=== PATIENT | female | born 1990 | race Caucasian/White ===

== ENCOUNTER 2019-09-14 17:23 | Emergency (ER) | payer BC, SELFPAY ==
--- NOTE | ~2019-09-14 | US_ITS ---
EXAMINATION: US OB <= 14 weeks fetus EXAM DATE: 09/14/2019 17:56 INDICATION: Vaginal bleeding, . 1st trimester. TECHNIQUE: Pelvic obstetrical transabdominal sonogram was performed by a technologist. There are mu ltiple grayscale and Doppler images available for interpretation. There are no earlier studies of th is gestation for comparison. FINDINGS: Uterus measures 11.0 x 8.7 x 5.6 cm. There is intrauterine gestation sac. pole with heart rate confirmed at 169 beats per minute. The 1.6 cm crown-rump length corresponds to estimated gestational age by ultrasound of 8 weeks 0 days . Yolk sac is identified. There are 2 small regio ns of subchorionic hemorrhage identified, largest measuring 1.5 x 1.4 x 1.1 cm, the other measuring 6 x 7 x 3 mm. Left ovary morphologically normal, right not identified. IMPRESSION: Early live intrauterine gestation with 2 small subchorionic hemorrhages. Reviewed, dictated and finalized at location A. IMPRESSION: Early live intrauterine gestation with 2 small subchorionic hemorr hages.
[2019-09-14 17:39] VITALS: BP 110/62; PULSE 88; RESP 20; TEMP 36.8; O2SAT 98
--- NOTE | 2019-09-14 18:00 | ED.FEMALEGU ---
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 Patient reports LMP of 07/19/2019. She is a patient of Dr. Thompson. Has follow-up tomorrow but developed this discomfort today and he referred her to the ER. She is a G4, P1. No urinary symptoms. Pain is crampy and nonradiating. Related Data Allergies Allergy/AdvReac Type Severity Reaction Status Date / Time No Known Allergies Allergy Verified 06/01/17 15:39 Review of Systems Review of Systems: All systems reviewed & are unremarkable except as noted in HPI and below Gastrointestinal: Gastrointestinal: Reports abdominal pain, Denies nausea and Denies vomiting Genitourinary: Genitourinary: Denies abnormal vaginal bleeding, Denies nocturia, Denies dysuria and Denies vaginal discharge PMFSH Past Medical History Medical History (Updated 09/14/19 @ 19:21 by Robert Medina MD) Patient denies significant medical history Surgical History Surgical History (Updated 09/14/19 @ 18:07 by Robert Medina MD) No significant past surgical history Family History Family History (Updated 09/10/18 @ 10:29 by DOCTOR UNKNOWN) Father Diabetes mellitus Grandparent Diabetes mellitus Family history of cardiovascular disease, Onset Age: 63 Family history of lung cancer Mother Family history of malignant neoplasm Social History Social History Smoking status: Never smoker Second hand tobacco smoke exposure: No Alcohol intake: never Exam Narrative: Exam Narrative: GENERAL: Well-appearing, well-nourished, and in no acute distress. HEAD: Normocephalic, atraumatic. ENT: Mucous membranes moist. CHEST: Clear to auscultation. No respiratory distress. HEART: Regular rate and rhythm. Normal peripheral pulses. ABDOMEN: Soft, nontender, nondistended. Pelvic: Normal external genitalia, normal-appearing cervix with closed cervical office, scant vaginal discharge, no vaginal bleeding. EXTREMITIES: Normal range of motion. No edema. SKIN: Warm, dry, no rash. NEURO: Alert and oriented x3. Course Course Emergency Course: Patient informed of results. Discharge home. Needs follow-up with her OB tomorrow. Vital Signs Vital signs: Vital Signs Temperature 98.2 F 09/14/19 17:39 Pulse Rate 88 09/14/19 17:39 Respiratory Rate 20 09/14/19 17:39 Blood Pressure 110/62 09/14/19 17:39 Pulse Oximetry 98 09/14/19 17:39 Temperature 98.2 F 09/14/19 17:39 Pulse Rate 88 09/14/19 17:39 Respiratory Rate 20 09/14/19 17:39 Blood Pressure 110/62 09/14/19 17:39 Pulse Oximetry 98 09/14/19 17:39 MDM - Female Genitourinary Lab Data Result diagrams: 09/14/19 18:08 09/14/19 18:08 Labs: Lab Results 09/14/19 09/14/19 09/14/19 Range/Units 18:08 18:08 18:08 WBC 9.8 (4.5-10.0) K/mm3 RBC 4.34 (4.2-5.4) M/mm3 Hgb 12.7 (12.0-15.0) g/dL Hct 38.8 (37.0-47.0) % MCV 89.4 (80-100) fl MCH 29.3 (26-34) pg MCHC 32.7 (32-36) g/dl RDW 12.6 (11.5-14.5) % Plt Count 310 (150-375) k/mm3 MPV 9.4 (7.4-10.4) fl Immature Gran % (Auto) 0.4 (0-0.5) % Neut % (Auto) 62.8 (45.5-73.1) % Lymph % (Auto) 28.1 (18.3-44.2) % [place] % (Auto) 7.6 (2.6-8.5) % Eos % (Auto) 0.8 (0-4.4) % Baso % (Auto) 0.3 (0.2-1.2) % Lymph # (Auto) 2.75 (0.9-3.2) K/mm3 [place] # (Auto) 0.7 H (0.1-0.6) K/mm3 Eos # (Auto) 0.1 (0-0.3) K/mm3 Baso # (Auto) 0.0 (0.0-0.1) K/mm3 Abs Immat Gran (auto) 0.04 H (0.00-0.031) K/mm3 Absolute Neuts (auto) 6.1 (1.3-6.7) K/mm3 Absolute Nucleated RBC 0.0 (0.0-0.012) K/mm3 Nucleated RBC % 0.0 (0.0-0.2) % Sodium 136 L (137-145) mmol/L Potassium 3.8 (3.4-5.0) mmol/L Chloride 104
[2019-09-14 18:25] LABS: Basophils Percent Auto 0.3 % (0.2-1.2); Eosinophils Absolute Auto 0.1 K/mm3 (0-0.3); Eosinophils Percent Auto 0.8 % (0-4.4); Hematocrit 38.8 % (37.0-47.0); Hemoglobin 12.7 g/dL (12.0-15.0); Immature Granulocyte Absolute 0.04 K/mm3 (0.00-0.031); Immature Granulocyte Percent A 0.4 % (0-0.5); Lymphocytes Absolute Auto 2.75 K/mm3 (0.9-3.2); Lymphocytes Percent Auto 28.1 % (18.3-44.2); Mean Corpuscular HGB Conc 32.7 g/dl (32-36); Mean Corpuscular Hemoglobin 29.3 pg (26-34); Mean Corpuscular Volume 89.4 fl (80-100); Mean Platelet Volume 9.4 fl (7.4-10.4); Monocytes Absolute Auto 0.7 K/mm3 (0.1-0.6); Monocytes Percent Auto 7.6 % (2.6-8.5); Neutrophils Absolute Auto 6.1 K/mm3 (1.3-6.7); Neutrophils Percent Auto 62.8 % (45.5-73.1); Platelet Count Result 310 k/mm3 (150-375); Red Blood Count 4.34 M/mm3 (4.2-5.4); Red Cell Distribution Width 12.6 % (11.5-14.5); White Blood Count 9.8 K/mm3 (4.5-10.0)
[2019-09-14 18:31] LABS: Add Urine Microscopic? NO; Appearance Urine Clear (Clear); Bilirubin Urine Negative (Negative); Blood Urine Negative (Negative); Color Urine Colorless (Yellow); Glucose Urine UA Negative (Negative); Ketones Urine Negative (Negative); Leukocyte Esterase Ur Negative LEU/UL (Negative); Nitrate Urine Negative (Negative); Protein Urine Negative (Negative); Specific Grav Ur 1.008 (1.001-1.035); Urobilinogen Urine Negative mg/dL (<2.0)
[2019-09-14 18:38] LABS: Blood Urea Nitrogen 5 mg/dL (7-17); Calcium 8.6 mg/dL (8.4-10.2); Carbon Dioxide 25 mmol/L (22-30); Chloride 104 mmol/L (98-107); Estimated CRCL calculation 124 ml/min; Estimated Glomerular Filt Rate > 60; Glucose 77 mg/dL (65-105); Potassium 3.8 mmol/L (3.4-5.0); Sodium 136 mmol/L (137-145)
[2019-09-14 19:41] VITALS: BP 120/78; PULSE 70; RESP 20; O2SAT 100
== END 2019-09-14 19:43 | disposition home or self-care (01) ==
PROVIDERS: Emergency Provider Emergency Medicine; PCP Family Medicine
DX: O20.8 Other hemorrhage in early pregnancy (principal); Z3A.08 8 weeks gestation of pregnancy
CPT/HCPCS: 36415; 76801; 80048; 81003; 84702; 85025; 85461; 99284

== ENCOUNTER 2019-10-13 08:48 | Outpatient (CLI) | payer BC, SELFPAY ==
--- NOTE | ~2019-10-13 | US_ITS ---
EXAMINATION: US OB <= 14 weeks fetus DATE: 10/13/2019 09:50 INDICATION: Routine care TECHNIQUE: Real-time pelvic ultrasound utilizing both a transvaginal and transabdominal probe was pe rformed. The interpreting radiologist was not present for the study. COMPARISON: 09/14/2019 FINDINGS: The uterus measures 4.1 x 8.1 x 10.4 cm. There is an intrauterine gestational sac. A yolk sac and fe yadi pole are identified. The crown rump length measures 5.6 cm, which correlates with an estimated ge stational age of 12 weeks and 1. heart motion is identified measuring 163 beats per minute (bpm ) by M-mode Doppler. There is a 2.3 x 0.8 x 1.8 cm hypoechoic subchorionic hematoma along the inferio r margin of the placenta. An earlier second small subchorionic hematoma is not appreciated on the cur rent study. The right ovary measures 2.0 x 3.2 x 1.6 cm. The left ovary measures 2.4 x 1.5 x 3.4 cm. Vascular stacey w is identified at both ovaries on color Doppler. There is no free fluid in the pelvis. IMPRESSION: 1. Single living fetus with heart rate of 163 bpm. 2. Gestational age by ultrasound of 12 weeks 1 day(s) +/- 1 week and 1 day with ultrasound estimated date of delivery (JESSY) of 04/25/2020 which is concordant with ultrasound performed one month prior. 3. Single small subchorionic hematoma. Reviewed, dictated and finalized at location A. IMPRESSION: 1. Single living fetus with heart rate of 163 bpm. 2. Gestational age by ultrasound of 12 weeks 1 day(s) +/- 1 week and 1 day wit h ultrasound estimated date of delivery (JESSY) of 04/25/2020 which is concordant with ultrasound performed one month prior. 3. Single small subchorionic hematoma.
== END 2019-10-13 08:49 | disposition home or self-care (01) ==
PROVIDERS: PCP Family Medicine; Visit Provider Obstetrics & Gynecology
DX: O46.91 Antepartum hemorrhage, unspecified, first trimester (principal); Z3A.12 12 weeks gestation of pregnancy
CPT/HCPCS: 76801

== ENCOUNTER 2019-11-17 11:35 | Outpatient (CLI) | payer BC, SELFPAY ==
--- NOTE | ~2019-11-17 | US_ITS ---
EXAMINATION: US OB >= 14 weeks Fetus DATE: 11/17/2019 12:16 INDICATION: Routine care, second trimester anatomic survey TECHNIQUE: Real-time ultrasound of the pelvis was performed. COMPARISON: None. FINDINGS: There is a single living fetus in variable presentation. The placenta is posterior and 4.3 cm from th e internal cervical os. heart rate is 145 beats per minute (bpm). cardiac activity and f etal movement are noted. The amniotic fluid index is subjectively normal. There is suboptimal evaluation of the upper lip, spine, heart, and kidneys. The following anato my was identified as normal: 3 vessel cord cord insertion urinary bladder stomach diaphragm ventricles cisterna magna cerebellum The following biometric data were obtained: Biparietal diameter (BPD): 3.5 cm; head circumference (HC): 13.7 cm; abdominal circumference (AC): 11 .3 cm; femur length (FL): 2.3 cm. These measurements are concordant. Estimated weight is 181 g +/- 27 g, which correlates with the 42nd percentile when 04/25/2020 is used as estimated date of delivery. As single measurements, these parameters are each equal to the following estimated gestational ages w ith ranges of +/- 2 standard deviations: BPD: 17 weeks 0 days ( 15 weeks 6 days - 18 weeks 1 days). HC: 17 weeks 1 days ( 16 weeks 0 days - 18 weeks 3 days). AC: 17 weeks 1 days ( 15 weeks 3 days - 18 weeks 5 days). FL: 17 weeks 1 days ( 15 weeks 5 days - 18 weeks 3 days). estimated gestational age based solely on measurements from this exam is 17 weeks 1 days +/- 1 weeks 1 days. IMPRESSION: 1. Single living fetus in variable presentation. 2. Estimated weight is 181 g +/- 27 g, which correlates with the 42nd percentile when 04/25/2020 is used as estimated date of delivery. 3. Incomplete anatomic survey due to early gestation. Reviewed, dictated and finalized at location A. IMPRESSION: 1. Single living fetus in variable presentation. 2. Estimated weight is 181 g +/- 27 g, which correlates with the 42nd per centile when 04/25/2020 is used as estimated date of delivery. 3. Incomplete anatomic survey due to early gestation.
== END 2019-11-17 11:36 ==
LOC: MICIMG 11:35
PROVIDERS: Visit Provider Obstetrics & Gynecology
DX: Z34.90 Encounter for supervision of normal pregnancy, unspecified, unspecified trimester (principal); Z3A.17 17 weeks gestation of pregnancy
CPT/HCPCS: 76805

== ENCOUNTER 2019-12-13 09:50 | Outpatient (CLI) | payer BC, SELFPAY ==
--- NOTE | ~2019-12-13 | US_ITS ---
US OB limited 12/13/2019 10:41 Indication: Follow-up survey Procedure: High-resolution Limited obstetrical ultrasound Comparison: 11/17/2019 Findings: There is a single living intrauterine in variable presentation. heart rate 139 BPM. Placenta is posterior fundal and posterior without previa. Amniotic fluid is subjectively no rmal. Limited survey demonstrates a normal spine, four-chamber heart and kidneys. Impression: 1: Single living intrauterine in variable presentation. 2: Normal limited survey. Reviewed, dictated and finalized at location A. Impression: 1: Single living intrauterine in variable presentation. 2: Normal limited survey.
== END 2019-12-13 09:51 | disposition home or self-care (01) ==
PROVIDERS: Visit Provider Obstetrics & Gynecology
DX: Z34.90 Encounter for supervision of normal pregnancy, unspecified, unspecified trimester (principal); Z3A.00 Weeks of gestation of pregnancy not specified
CPT/HCPCS: 76815

== ENCOUNTER → 2020-02-10 09:43 | Outpatient (CLI) | payer BC, SELFPAY ==
--- NOTE | ~2020-02-10 | US_ITS ---
EXAMINATION: US OB follow up DATE: 02/10/2020 10:18 INDICATION: Routine care TECHNIQUE: Real-time ultrasound of the pelvis was performed. The interpreting radiologist was not pre sent for the study. COMPARISON: None. FINDINGS: There is a single living fetus in breech presentation. The placenta is posterior fundal. heart rate is 142 beats per minute (bpm). The amniotic fluid index is 17.7 cm, which is normal. (5th%-95% : 9.2-23.1 cm at 29 weeks estimated gestational age). The following biometric data were obtained: BPD: 7.5 cm -> 30 weeks 0 days Head circumference: 27.8 cm -> 30 weeks 3 days Abdominal circumference: 24.8 cm -> 29 weeks 0 days Femur length: 5.3 cm -> 28 weeks 1 days These measurements are concordant. Head circumference to abdominal circumference ratio: 1.12 (normal range 0.98-1.20). Estimated weight: 1314 g (+/-) 197 g. or 2 lbs. 14 oz. (+/-) 7 oz. IMPRESSION: 1. Single living fetus in breech presentation with heart rate of 142 bpm. 2. Normal amniotic fluid index of 17.7 cm. 3. Estimated weight is 26th percentile by Hadlock criteria when 04/25/2020 is used as the estima carlos date of delivery (JESSY). Please correlate with clinical information or earlier ultrasounds for mos t accurate JESSY. Reviewed, dictated and finalized at location B. IMPRESSION: 1. Single living fetus in breech presentation with heart rate of 142 bpm. 2. Normal amniotic fluid index of 17.7 cm. 3. Estimated weight is 26th percentile by Hadlock criteria when 04/25/2020 is used as the estimated date of delivery (JESSY). Please correlate with clinica l information or earlier ultrasounds for most accurate JESSY.
== END ==
PROVIDERS: Visit Provider Obstetrics & Gynecology
DX: Z34.90 Encounter for supervision of normal pregnancy, unspecified, unspecified trimester (principal); Z3A.00 Weeks of gestation of pregnancy not specified
CPT/HCPCS: 76816

== ENCOUNTER 2020-04-10 18:13 | Observation (INO) | payer BC, MEDICAID, SELFPAY ==
[2020-04-10 18:31] VITALS: BP 106/68; PULSE 104
[2020-04-10 18:45] VITALS: BP 109/69; PULSE 100
[2020-04-10 19:00] VITALS: BP 106/70; PULSE 89
--- NOTE | 2020-04-10 19:09 | OBADM ---
This patient, Asael Kruger, admitted to the OB room Labor/Delivery/Recovery 105 for observation. Patient/family oriented to hospital policies and general routines including ID bracelet, bed and alarms, visiting hours, pain management, procedures, bathroom and other care routines, personal items, smoking policy, room service/diet, and visiting hours. Patient/Family are encouraged to report perceived risks to care and to ask questions if they do not understand what they are told or what they should do.
[2020-04-10 19:23] VITALS: BMI 38.0
--- NOTE | 2020-04-11 05:36 | PM.OBTRLD ---
OB - Triage/Final Diagnosis Evaluation Vital signs: Vital Signs - 24 hr 04/10/20 18:31 04/10/20 18:45 04/10/20 19:00 Pulse Rate 104 H 100 89 Blood Pressure 106/68 109/69 106/70 Final Diagnosis (1) False labor: Code(s): O47.9 - False labor, unspecified Status: Acute
== END 2020-04-10 19:25 | disposition home or self-care (01) ==
PROVIDERS: Admitting Provider Obstetrics & Gynecology; PCP Family Medicine; Visit Provider Obstetrics & Gynecology
DX: O47.9 False labor, unspecified (principal); Z3A.00 Weeks of gestation of pregnancy not specified
CPT/HCPCS: 84112; G0378; G0379

== ENCOUNTER → 2020-04-12 11:22 | Outpatient (CLI) | payer BC, MEDICAID, SELFPAY ==
--- NOTE | ~2020-04-12 | US_ITS ---
EXAMINATION: US OB follow up DATE: 04/12/2020 11:57 INDICATION: Routine care, third trimester TECHNIQUE: Real-time ultrasound of the pelvis was performed. The interpreting radiologist was not pre sent for the study. COMPARISON: 02/10/2020 FINDINGS: There is a single living fetus in vertex presentation. The placenta is fundal/posterior. Fe yadi cardiac activity and movement are noted. heart rate is 159 beats per minute (bpm). Th e amniotic fluid index is 8.9 cm which is normal. The following biometric data were obtained: Biparietal diameter (BPD): 9.2 cm; head circumference (HC): 32.9 cm; abdominal circumference (AC): 33 .1 cm; femur length (FL): 6.8 cm. These measurements are concordant. Estimated weight is 3020 g +/- 452 g, which correlates with the 28th percentile when 04/25/2020 is used as estimated date of delivery. As single measurements, these parameters are each equal to the following estimated gestational ages w ith ranges of +/- 2 standard deviations: BPD: 37 weeks 5 days ( 34 weeks 4 days - 41 weeks 0 days). HC: 37 weeks 3 days ( 34 weeks 5 days - 40 weeks 1 days). AC: 37 weeks 0 days ( 34 weeks 0 days - 40 weeks 1 days). FL: 35 weeks 2 days ( 32 weeks 2 days - 38 weeks 2 days). estimated gestational age based solely on measurements from this exam is 36 weeks 6 days +/- 2 weeks 4 days. IMPRESSION: 1. Single living fetus in vertex presentation. 2. Estimated weight is 3020 g +/- 452 g, which correlates with the 28th percentile when 04/25/19 21 is used as estimated date of delivery. Reviewed, dictated and finalized at location A. 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 Single living fetus in vertex presentation. 2. Estimated weight is 3020 g +/- 452 g, which correlates with the 28th p ercentile when 04/25/2020 is used as estimated date of delivery.
== END ==
PROVIDERS: Visit Provider Physician Assistant
DX: Z34.93 Encounter for supervision of normal pregnancy, unspecified, third trimester (principal); Z3A.36 36 weeks gestation of pregnancy
CPT/HCPCS: 76816

== ENCOUNTER 2020-04-23 07:25 | Outpatient (CLI) | payer BC, MEDICAID, SELFPAY ==
--- NOTE | 2020-04-23 08:37 | OBADM ---
This patient, Asael Kruger, admitted to the OB room Labor/Delivery/Recovery 107 for observation. Patient/family oriented to hospital policies and general routines including ID bracelet, bed, pain management, procedures, bathroom and other care routines, personal items, and call light. Patient/Family are encouraged to report perceived risks to care and to ask questions if they do not understand what they are told or what they should do.
== END 2020-04-23 08:58 | disposition home or self-care (01) ==
LOC: ANHOBOP 08:23 → ANHLDR 08:25
PROVIDERS: PCP Family Medicine; Visit Provider Obstetrics & Gynecology
DX: O42.90 Premature rupture of membranes, unspecified as to length of time between rupture and onset of labor, unspecified weeks of gestation (principal); Z3A.00 Weeks of gestation of pregnancy not specified
CPT/HCPCS: 59025; 84112; 99199

== ENCOUNTER 2020-04-27 05:20 | Inpatient (IN) | payer BC, MEDICAID, SELFPAY ==
--- NOTE | 2020-04-26 19:43 | PM.IMHP ---
H&P: HPI History of Present Illness Date/Time: 04/26/20 19:43 Chief Complaint: elective induction of labor at IUP 40 weeks Narrative: Asael Kruger is a 29 year old female at 34w2d with a history of MTHFR, recurrent miscarriage, and rubella nonimmunity here for PARUL induction of labor Review of Systems Review of Systems: All systems reviewed & are unremarkable except as noted in HPI and below Constitutional: Constitutional: Reports no additional constitutional complaints Eyes: Eyes: Reports no additional eye complaints ENT: Reports system reviewed and no additional complaints, except as documented Cardiovascular: Cardiovascular: Reports no additional cardiovascular complaints Respiratory: Respiratory: Reports no additional respiratory complaints Gastrointestinal: Gastrointestinal: Reports no additional gastrointestinal complaints Genitourinary: Genitourinary: Reports no additional female genitourinary complaints Musculoskeletal: Musculoskeletal: Reports no additional musculoskeletal complaints Integumentary/Breasts: Skin/Breast: Reports system reviewed and no additional complaints, except as docu Neurologic: Reports system reviewed and no additional complaints, except as documented Psychiatric: Psychiatric: Reports no additional psychiatric complaints Endocrine: Endocrine: Reports no additional endocrine complaints Hematologic/Lymphatic: Hematologic/Lymphatic: Reports no additional hematologic/lymphatic complaints Allergic/Immunologic: Allergic/Immunologic: Reports no additional allergic/immunologic complaints ON LICENSE OF [facility] Past Medical History Medical History (Updated 04/26/20 @ 19:53 by Derek Thompson MD) JOSIE (generalized anxiety disorder) 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 F, 7lbs 11oz, Standard Vaginal Delivery Surgical History Surgical History No significant past surgical history Family History Family History Father Diabetes mellitus Grandparent Diabetes mellitus Family history of cardiovascular disease, Onset Age: 63 Family history of lung cancer Mother Family history of malignant neoplasm Social History Social History Smoking status: Never smoker Second hand tobacco smoke exposure: No Alcohol intake: never Substance use: never Living arrangements: with family Occupation/Education: occupation Gender identity (if verbalized by the patient): Female Sexual Orientation (if Verbalized by the Patient): Straight or Heterosexual Spiritual care concerns: No Agree to blood products: Yes Meds Home Medications and Allergies Home Medications Medication Instructions Recorded Confirmed Type PNV cmb#95-ferrous fumarate-FA 1 tablet PO DAILY 04/20/20 04/20/20 History [] sertraline 50 mg PO DAILY 04/20/20 04/20/20 History Allergies Allergy/AdvReac Type Severity Reaction Status Date / Time No Known Allergies Allergy Verified 04/23/20 08:39 Exam Const: General: cooperative, healthy appearing, comfortable, no acute distress, well developed, alert, awake and Physically active Nutritional Appearance: obese Orientation/consciousness: patient oriented x3 Limitations: no limitations HENMT: Head: normal to inspection Eyes: General: appearance normal, both eyes and all related structures Eyelids: eyelids normal Pupils: Equal, round and reactive pupils present EOM: EOMs intact bilaterally Neck: Neck: normal visual inspection and full ROM Chest: Chest palpation & inspection: normal inspection of the chest Breast/axilla inspection
--- NOTE | 2020-04-26 20:01 | WPDOBADMIT ---
Obstetrics - Admit Note Admission Note: record reviewed. No pertinent additions to the history and/or any subsequent changes in the physical findings that are not consistent with the expected course of the were found. Additions to the history and/or subsequent changes in the physical findings follow. None. 29 y/o at 40w2d with a history of MTHFR, recurrent miscarriage, and rubella nonimmunity here for elective induction of labor
--- NOTE | 2020-04-26 20:04 | WPDHPUPDATE1 ---
History and Physical Update Update Date/Time: 04/26/20 20:04 History and Physical has been reviewed, including an updated exam of the patient. There are NO changes in the patient's condition. Risks, benefits, and alternatives have been discussed and questions answered. Patient agrees to proceed with procedure. 29 y/o at 40w2d with a history of MTHFR, recurrent miscarriage, and rubella nonimmunity here for elective induction of labor
[2020-04-27] VITALS (120 sets, daily range): BP systolic 93–123; BP diastolic 26–79; PULSE 70–104; TEMP 36.5–37.2; O2SAT 96–100; BMI 39.3
--- OUTSIDE RECORDS SUMMARY | 2020-04-27 05:26 | XMS_ITS | Encounter Summary ---
:1990 Author Care Team Providers Name Role Phone Derek Thompson MD Solutions Developer [phone] Reason for Visit ob routine visit; Phone Visit Assessment and Plan 1. Routine care 29 y/o at 34w2d with a history of MTHFR, recurrent miscarriage, and rubella nonimmunity here for PARUL. 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 2. Exposure to SARS-CoV-2 ? 9 things to do if you've b een exposed to covid-19 ? COVID-19 RNA (SARS-CoV-2), QL, grounds maintenance worker-PCR, respiratory specimen 3. 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 B12 shot at next visit. 4. Generalized anxiety disorder ? anxiety disorder: care ins tructions 5. Recurrent miscarriage Discussion Note: None recorded. Plan of Care Reminders Provider Appointments 15 05/10/2020 Gabrielle Thompson, 10:45AM ? 15 on or around Gabrielle Thompson 05/17/2020 ? Nurse Only 06/03/2020 Nurse 10:30AM Lab COVID-19 RNA 04/13/2020 [facility] PSC (SARS-CoV-2), QL, grounds maintenance worker-PCR, Respiratory Specimen Referral None ? ? recorded. Procedures None ? ?
--- OUTSIDE RECORDS SUMMARY | 2020-04-27 05:26 | XMS_ITS | Encounter Summary ---
:1990 Author Care Team Providers Name Role Phone Derek Thompson MD Bridge Contractor [phone] Reason for Visit ob routine visit Assessment and Plan 1. Routine care 29 y/o at 34w2d with a history of MTHFR, recurrent miscarriage, and rubella nonimmunity here for PARUL. 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 ? urinalysis, dipstick 2. Generalized anxiety disorder ? anxiety disorder: care ins tructions 3. 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 B12 shot at next visit. 4. Recurrent miscarriage 5. Rubella non-immune Discussion Note: None recorded. Plan of Care Reminders Provider Appointments 05/10/2020 Derek Thompson, Meir 10:45AM ? on or around Meir Landeros 05/17/2020 ? Nurse Only 06/03/2020 Nurse 10:30AM Lab Urinalysis, 04/20/2020 In-Of fice Order Dipstick Referral None ? ? recorded. Procedures None ? ? recorded. Surgeries None ? ? recorded. Imaging None ? ? recorded. Medications
--- OUTSIDE RECORDS SUMMARY | 2020-04-27 05:26 | XMS_ITS | Encounter Summary ---
:1990 Author Care Team Providers Name Role Phone Derek Thompson MD Beverage Distiller [phone] Reason for Visit ob routine visit CC pt is having cramping , pt states best t her belly was really tightening a couple of different times. no spotting, fluid leakage, or contractions. Assessment and Plan 1. Routine care 29yo presents for PARUL at 36w3d. Preg c/b MTHFR, recurrent miscarriage, JOSIE, and rubella nonimmunit y. Pt denies bleeding, contractions, and LOF. + movement. Will order repeat US to assess growth and position. B12 administered today and cultures obtained . WTC/WLB reviewed. RTC in 1 week. ? urinalysis, dipstick ? CBC - Please fax results t o [facility] [phone] ? US, obstetric, 3rd trimest er - growth assessment and presentation 2. screening ? culture, vaginal/rectal, s treptococcus group B - Please fax results to [facility] [phone] 3. Venereal disease screening ? HSV (1+2) DNA, qual, PCR, unspecified specimen - Please fax results to [facility] [phone] ? bacterial vaginosis + vagi nitis panel, vaginal - Please fax results to [facility] [phone] 4. 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 Continue progesterone, ASA, and folic acid as prescribed. B12 injection today. ? cyanocobalamin (vit B-12) 1,000 mcg/mL injection solution 5. Generalized anxiety disorder Stable on sertraline, continue as prescribed. Will monitor. Dis
--- OUTSIDE RECORDS SUMMARY | 2020-04-27 05:26 | XMS_ITS ---
:1990 Author Care Team Providers Name Role Phone RUDI GONZALEZ MD Client Service Administrator [phone] Allergies Code Code System Name Reaction Severity Status Onset NKDA ? Medications Name Status Start Date Stop Date ? ? Aspirin Low Dose 81 mg tablet,delayed release Active ? Not available Take 1 tablet twice a day by oral route. azithromycin 250 mg tablet Completed ? 09/14 Calcium 600 with Vitamin D3 600 mg (1,500 mg)-400 unit capsule A ctive ? Not available Take 1 capsule twice a day by oral route. cyanocobalamin (vit B-12) 1,000 mcg/mL injection solution Active ? Not available Inject 1 mL every month by subcutaneous route. doxylamine 10 mg-pyridoxine (vit B6) 10 Active ? Not available mg tablet,delayed release folic acid 1 mg tablet Active ? Not avail able ParaGard T 380A 380 square mm intrauterine device Active ? Not available Take 1 device by intrauterine route. 28 mg iron-800 mcg tablet Active ? Not available Vitamin tablet Active ? Not avai lable Take 1 tablet every day by oral route as directed for 90 days. progesterone micronized 200 mg capsule Completed ? 01/06/2020 sertraline 100 mg tablet Completed ? 020 sertraline 25 mg tablet Active ? Not avai lable sertraline 50 mg tablet Active ? Not avai lable Take 1 tablet every day by oral route. Problems Name Status Onset Date Source ? Subchorionic
--- OUTSIDE RECORDS SUMMARY | 2020-04-27 05:26 | XMS_ITS | Encounter Summary ---
:1990 Author Care Team Providers Name Role Phone Derek Thompson MD Labor Gang Supervisor [phone] Reason for Visit ob routine visit Assessment and Plan 1. Routine care 29yo presents for PARUL at 37w3d. Preg c/b MTHFR, recurrent miscarriage, JOSIE, and rubella nonimmunit y. Pt denies bleeding, and LOF. Some irregular contractions,. + movement . WTC/WLB reviewed. RTC in 1 week. ? urinalysis, dipstick 2. 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 Continue progesterone, ASA, and folic acid as prescribed. B12 injection given 03/30. 3. Generalized anxiety disorder Stressed today due to work. On sertraline, continue as prescribed. Will monitor. Discussion Note: None recorded.Patient educational handouts: No information available. Plan of Care Reminders Provider Appointments 05/10/2020 Meir Landeros 10:45AM ? on or around Meir Landeros 05/17/2020 ? Nurse Only 06/03/2020 Nurse 10:30AM Lab Urinalysis, 04/06/2020 In-Of fice Order Dipstick Referral None ? ? recorded. Procedures None ? ? recorded. Surgeries None ? ? recorded. Imaging None ? ? recorded. Medica
--- OUTSIDE RECORDS SUMMARY | 2020-04-27 05:26 | XMS_ITS | Encounter Summary ---
:1990 Author Care Team Providers Name Role Phone Derek Thompson MD Cutter [employer] [phone] Reason for Visit ob routine visit Assessment and Plan 1. Routine care 29 y/o at 34w2d with a history of MTHFR, recurrent miscarriage, and rubella nonimmunity here for PARUL. 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 ? urinalysis, dipstick 2. Abnormal progesterone 3. 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 B12 shot at next visit. 4. Recurrent miscarriage 5. Rubella non-immune Discussion Note: None recorded.Patient educational handouts: No information available. Plan of Care Reminders Provider Appointments 05/10/2020 Derek Thompson, Meir 10:45AM ? on or around Meir Landeros 05/17/2020 ? Nurse Only 06/03/2020 Nurse 10:30AM Lab Urinalysis, 03/16/2020 In-Of fice Order Dipstick Referral None ? ? recorded. Procedures None ? ? recorded. Surgeries None ? ? recorded. Imaging None ? ? recorded. Medications Name Start Date ?
--- OUTSIDE RECORDS SUMMARY | 2020-04-27 05:26 | XMS_ITS | Encounter Summary ---
:1990 Author Care Team Providers Name Role Phone Derek Thompson MD Studio Receptionist [phone] Reason for Visit ob routine visit Assessment and Plan 1. Routine care 29 y/o at 34w2d with a history of MTHFR, recurrent miscarriage, and rubella nonimmunity here for PARUL. 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 ? urinalysis, dipstick ? induction of labor (PROC) 2. 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 B12 shot at next visit. ? cyanocobalamin (vit B-12) 1,000 mcg/mL injection solution 3. Obesity ? eating healthy foods: care instructions ? learning about dietary stefany delines ? learning about healthy javi ght ? A healthy lifestyle: care instructions Discussion Note: None recorded. Plan of Care Reminders Provider Appointments 05/10/2020 Derek Thompson, 15 10:45AM ? on or around Meir Landeros 05/17/2020 ? Nurse Only 06/03/2020 Nurse 10:30AM Lab Urinalysis, 04/26/2020 In-Of fice Order Dipstick Referral None ? ? recorded. Procedures Induction of 04/26/2020 Xu rson Labor (PROC)
--- OUTSIDE RECORDS SUMMARY | 2020-04-27 05:27 | XMS_ITS | Encounter Summary ---
:1990 Author Care Team Providers Name Role Phone Derek Thompson MD Mechanical Engineering Advisor [phone] Reason for Visit Phone Visit Assessment and Plan 1. Abdominal pain 29yo F, , at 28 week 5 days presenting with RLQ cramping pain, associated with diarrhea. Likely gastroe nteritis vs. dehydration. No signs or symptoms of distress. Pt denies co ntractions, bleeding, LOF. She endorses movement. Patient given strict instructi ons for presenting to ER should things get worse, as well as to come into the offic e Saturday if symptoms do not improve. Discussion Note: None recorded.Patient educational handouts: No information available. Plan of Care Reminders Provider Appointments 05/10/2020 Meir Landeros 10:45AM ? on or around Meir Landeros 05/17/2020 ? Nurse Only 06/03/2020 Nurse 10:30AM Lab None ? ? recorded. Referral None ? ? recorded. Procedures None ? ? recorded. Surgeries None ? ? recorded. Imaging None ? ? recorded. Medications Name Start Date ? ? Aspirin Low Dose 81 mg tablet,delayed release ? Take 1 tablet twice a day by oral route. Calcium 600 with Vitamin D3 600 mg (1,500 mg)-400 unit capsule
--- OUTSIDE RECORDS SUMMARY | 2020-04-27 05:27 | XMS_ITS | Encounter Summary ---
:1990 Author Care Team Providers Name Role Phone Derek Thompson MD Biology Professor [phone] Reason for Visit ob routine visit pt Questions RE Breast Pump, cb-rma Assessment and Plan 1. Routine care ? urinalysis, dipstick ? electronic breast pump 2. 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 Recurrent miscarriage 4. Subchorionic hematoma 5. Rubella non-immune Discussion Note: None recorded.Patient educational handouts: No information available. Plan of Care Reminders Provider Appointments 05/10/2020 Derek Thompson, 15 10:45AM MD ? on or around Derek Thompson, 15 05/17/2020 ? Nurse Only 06/03/2020 Nurse 10:30AM Lab Urinalysis, 02/16/2020 In-Of fice Order Dipstick Referral None ? ? recorded. Procedures None ? ? recorded. Surgeries None ? ? recorded. Imaging None ? ? recorded. Medications Name Start Date ? ? Aspirin Low Dose 81 mg tablet,delayed release ? Take 1 tablet twice a day by oral route. Calcium 600 with Vitamin D3 600 mg
--- OUTSIDE RECORDS SUMMARY | 2020-04-27 05:27 | XMS_ITS | Encounter Summary ---
:1990 Author Care Team Providers Name Role Phone Derek Thompson MD Mainframe Software Developer [phone] Reason for Visit ob routine visit Assessment and Plan 1. Routine care ? Boostrix Tdap 2.5 Lf unit- 8 mcg-5 Lf/0.5 mL intramuscular syringe ? US, obstetric, 3rd trimest er ? counting your baby's kicks : care instructions ? kick counts ? CBC - In addition to our o ffice, please fax results to [facility] at [phone] ? treponema pallidum screen, serum, reflex confirmation - In addition to our office, please fax results to [facility] at [phone] ? HBsAg (hepatitis B surface Ag), EIA, serum - In addition to our office, please fax results to [facility] at [phone] ? HIV 1+2 AB + HIV 1 p24 Ag, qualitative immunoassay, serum - In addition to our office, please fax results to [facility] at [phone] ? urinalysis, dipstick 2. 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 cyanocobalamin (vit B-12) 1,000 mcg/mL injection solution 3. Recurrent miscarriage 4. screening ? glucose tolerance test, po st-50G, 1-hour - In addition to our office, please fax results to [facility] at [phone] 5. Administration of influenza v accine ? influenza (flu) vaccine: c are instru
--- OUTSIDE RECORDS SUMMARY | 2020-04-27 05:27 | XMS_ITS | Encounter Summary ---
:1990 Author Care Team Providers Name Role Phone Derek Thompson MD Mixer Slagman [phone] Reason for Visit ob routine visit Assessment and Plan Assessment Note SANDEE Sotomayor 1. Routine care 29yo presents for PARUL at 32w3d. Preg c/b MTHFR, recurrent miscarriage, and rubella nonimmunity. Pt denies bleeding, contractions, and LOF. + movement. Endorses shooting back pains and pelvic pressure. Maternity belt provided. US 02/09 living fetus in breec h position w/ heart rate 142. Normal amniotic fluid index of 17.7 cm, EFW 26t h percentile. B12 administered. RTC in 2 weeks ? urinalysis, dipstick 2. 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 Continue progesterone, ASA, and folic acid as prescribed. B12 injection today. ? cyanocobalamin (vit B-12) 1,000 mcg/mL injection solution 3. Generalized anxiety disorder increased anxiety, feeling she needs to get too many things done before the baby arrives. She has been taking sertraline 50mg, which seems to help, interested in dose increase. -Increase sertraline to 75mg daily. Refe rral to counseling. -Reassess at next visit ? counseling referral ? sertraline 50 mg tablet ? sertraline 25 mg tablet 4. Pelvic and perineal pain ? maternity belt Discussion Note: None recorded.Patient educational handouts: No information available. Plan of Care Reminders Provider Appointments
[2020-04-27 06:08] LABS: Basophils Percent Auto 0.1 % (0.2-1.2); Eosinophils Absolute Auto 0.1 K/mm3 (0-0.3); Eosinophils Percent Auto 0.6 % (0-4.4); Hematocrit 35.2 % (37.0-47.0); Hemoglobin 11.6 g/dL (12.0-15.0); Immature Granulocyte Absolute 0.05 K/mm3 (0.00-0.031); Immature Granulocyte Percent A 0.5 % (0-0.5); Lymphocytes Absolute Auto 2.39 K/mm3 (0.9-3.2); Lymphocytes Percent Auto 25.5 % (18.3-44.2); Mean Platelet Volume 10.4 fl (7.4-10.4); Monocytes Absolute Auto 0.8 K/mm3 (0.1-0.6); Monocytes Percent Auto 8.7 % (2.6-8.5); Neutrophils Absolute Auto 6.1 K/mm3 (1.3-6.7); Neutrophils Percent Auto 64.6 % (45.5-73.1); Platelet Count Result 304 k/mm3 (150-375); Red Cell Distribution Width 13.8 % (11.5-14.5); White Blood Count 9.4 K/mm3 (4.5-10.0)
[2020-04-27 07:43] LABS: Rapid Plasma Reagin Non-Reactive (NonReactive)
--- NOTE | 2020-04-27 07:55 | WPDANESEPP ---
Anes - Eval Pre Procedure Procedure: labor epidural Date/Time: 04/27/20 07:55 Surgeon: Jay Pre Op Diagnosis: IOL Patient Data Age: 29 Gender: F Height: 5 ft 7 in Weight: 114 kg Last Vital Signs Temp 37.1 C 04/27/20 06:39 Pulse 80 04/27/20 07:31 BP 107/60 04/27/20 07:31 Allergies Allergy/AdvReac Type Severity Reaction Status Date / Time No Known Allergies Allergy Verified 04/23/20 08:39 Home Medications Medication Instructions Recorded Confirmed Type PNV cmb#95-ferrous fumarate-FA 1 tablet PO DAILY 04/20/20 04/20/20 History [] sertraline 50 mg PO DAILY 04/20/20 04/20/20 History Laboratory Tests 04/27/20 04/27/20 04/27/20 05:50 05:50 05:50 WBC 9.4 K/mm3 K/mm3 (4.5-10.0) RBC 4.00 M/mm3 L M/mm3 (4.2-5.4) Hgb 11.6 g/dL L g/dL (12.0-15.0) Hct 35.2 % L % (37.0-47.0) MCV 88.0 fl fl (80-100) MCH 29.0 pg pg (26-34) MCHC 33.0 g/dl g/dl (32-36) RDW 13.8 % % (11.5-14.5) Plt Count 304 k/mm3 k/mm3 (150-375) MPV 10.4 fl fl (7.4-10.4) Immature Gran % (Auto) 0.5 % % (0-0.5) Neut % (Auto) 64.6 % % (45.5-73.1) Lymph % (Auto) 25.5 % % (18.3-44.2) Bacon % (Auto) 8.7 % H % (2.6-8.5) Eos % (Auto) 0.6 % % (0-4.4) Baso % (Auto) 0.1 % L % (0.2-1.2) Lymph # (Auto) 2.39 K/mm3 K/mm3 (0.9-3.2) Bacon # (Auto) 0.8 K/mm3 H K/mm3 (0.1-0.6) Eos # (Auto) 0.1 K/mm3 K/mm3 (0-0.3) Baso # (Auto) 0.0 K/mm3 K/mm3 (0.0-0.1) Abs Immat Gran (auto) 0.05 K/mm3 H K/mm3 (0.00-0.031) Absolute Neuts (auto) 6.1 K/mm3 K/mm3 (1.3-6.7) Absolute Nucleated RBC 0.0 K/mm3 K/mm3 (0.0-0.012) Nucleated RBC % 0.0 % % (0.0-0.2) RPR Non-reactive (NonReactive) Blood Type O Positive Antibody Screen Negative : gestational age (JESSY 04/24/20) Patient hx anesthesia problems: none Family hx anesthesia problems: [facility] Past Medical History Medical History JOSIE (generalized anxiety disorder) Homozygous MTHFR mutation [id number] MDD (major depressive disorder) Obesity Patient denies significant medical history Recurrent loss Rubella non-immune status, antepartum SAB (spontaneous ) 2008 SAB (spontaneous ) 2016 Vaginal delivery 06-08-2017, 39 wks 1. F, 7lbs 11oz, Standard Vaginal Delivery Surgical History Surgical History No significant past surgical history Family History Family History Father Diabetes mellitus Grandparent Diabetes mellitus Family history of cardiovascular disease, Onset Age: 63 Family history of lung cancer Mother Family history of malignant neoplasm Social History Social History Smoking status: Never smoker Second hand tobacco smoke exposure: No Alcohol intake: never Substance use: never Gender identity (if verbalized by the patient): Female Spiritual care concerns: No Agree to blood products: Yes Exam Day of Procedure 04/27/20 07:55 Patient weight: obese Heart: regular rate and rhythm Lungs: clear to auscultation and normal air movement Neurological: alert and oriented
--- NOTE | 2020-04-27 11:44 | PM.OBPNLAB ---
Pain Control Date/time seen: 04/27/20 11:44 Pain control: tolerating well Pelvic Exam Dilation (cm): 1 Effacement (%): 50 station: -3 Amniotic membrane status: Intact Contractions Monitor mode: External Contraction frequency: 5 Contraction duration: 40 Contraction pattern: Regular Contraction phase: Contraction Contraction intensity: Mild Status status: Category l Assessment and Plan Assessment: induction ongoing Plan: continuous present management
[2020-04-27] MEDS: LACTATED RINGERS 1,000 ML 125 ML IV CONT (17:00)
--- NOTE | 2020-04-27 19:45 | PM.OBPNLAB ---
Pain Control Date/time seen: 04/27/20 19:45 Pain control: tolerating well and epidural (spinal) Pelvic Exam Dilation (cm): 1 Effacement (%): 70 station: -3 Amniotic membrane status: Intact Comments: AROM clear fluid iupc placed Contractions Monitor mode: Internal Contraction frequency: 3 Contraction duration: 45 Contraction pattern: Regular Contraction phase: Contraction Contraction intensity: Moderate Status status: Category l Assessment and Plan Pitocin rate (mU/min): 20 Assessment: induction ongoing Plan: continuous present management Comments: turn off pitocin reval for active phase
[2020-04-27] MEDS: LORATADINE 10 MG TABLET PO (21:20)
[2020-04-28] VITALS (40 sets, daily range): BP systolic 103–131; BP diastolic 54–78; PULSE 79–107; RESP 16–18; TEMP 36.6–37.3; O2SAT 98–100
[2020-04-28] MEDS: diphenhydrAMINE HCl INJ 50 MG/ML VIAL 12.5 MG IV PUSH (00:12)
[2020-04-28] MEDS: LACTATED RINGERS 1,000 ML 125 ML IV CONT (00:18)
--- NOTE | 2020-04-28 02:24 | PM.OBPNLAB ---
Pain Control Date/time seen: 04/28/20 01:44 Pain control: tolerating well and epidural Comments: complete Pelvic Exam Dilation (cm): 10 Effacement (%): 100 station: +2 Amniotic membrane status: Ruptured Contractions Monitor mode: Internal Contraction frequency: 3 Contraction duration: 45 Contraction pattern: Regular Contraction phase: Contraction Contraction intensity: Moderate Status status: Category l Assessment and Plan Pitocin rate (mU/min): 6 Assessment: active labor Plan: continuous present management Comments: delivery
--- NOTE | 2020-04-28 02:25 | PM.OBPRVD ---
OB - Delivery Note Procedure Delivery date: 04/28/20 Procedure: Normal spontaneous vertex vaginal delivery viable male and placenta Repair of first-degree perineal laceration events: Labor Induction Intrapartal events: None Induction method: per pitocin protocol Delivery augmentation: rupture of membranes Delivery monitor: internal FHT and internal uterine Route of delivery: Episiotomy description: None Laceration Description: Perineal - 1st Degree Delivery repair: vicryl ( 2 0) Specimen: Yes ( placenta, cord gases, cord blood) Quantitative Blood Loss (ml): 150 Anesthesia type: Epidural Disposition: floor Complications: none Narrative: patient prepped in the usual sterile fashion for delivery. After 2 sets of pushes a normal spontaneous vertex vaginal delivery a viable male with easy delivery of anterior shoulder and baby placed on maternal abdomen cord clamped and cut spontaneous respirations and cry bulb suction scores of 8 and 8 cord gases cord blood obtained placenta delivered intact three-vessel cord with the uterus contracted well with Pitocin given intravenously first-degree perineal laceration repaired with 2 0 Vicryl suture in a running fashion the cervix and rectum were checked no sponges left in the vagina no fistula sphincters intact patient tolerated the procedure well in delivery room 103 Baby Date of : 04/28/20 Time of : 02:03 Weeks of gestation at delivery: 40 gender: Male Weight (pounds): 7 Weight (ounces): 7 presentation: vertex position: Left Occiput Anterior Placenta delivery description: Spontaneous and Normal Configuration cord vessel description: 3 Vessels score one minute: 8 score five minutes: 8 Narrative: no observed abnormalities on the exam normal transition taken to the nursery in stable condition
[2020-04-28] MEDS: OXYTOCIN 30 UNITS/NS 500 ML 30 UNITS/500 ML BAG 125 UNITS IV CONT (02:33)
[2020-04-28] MEDS: WITCH HAZEL 40 PADS 1 PAD TOPICAL (03:36)
[2020-04-28] MEDS: IBUPROFEN 600 MG TABLET PO ×3 (03:36→20:23)
[2020-04-28] MEDS: LANOLIN (LANSINOH) 7.5 GM CREAM 1 APPLIC TOPICAL (03:37)
[2020-04-28] MEDS: BENZOCAINE 20% AER SPR (*SP) 56 GM CAN 1 SPRAY TOPICAL (03:37)
[2020-04-28] MEDS: COSYNTROPIN 0.25 MG/ML VIAL 0.75 MG IV PUSH (04:14)
--- NOTE | 2020-04-28 04:46 | OBPPTRN ---
Patient transferred to post room # 291 via wheelchair. Support person and present. Oriented to unit, room, information board, rooming in, admission packet and security measures. Patient verbalizes understanding.
[2020-04-28] MEDS: ACETAMINOPHEN 325 MG TABLET 650 MG PO (05:14)
[2020-04-28] MEDS: SERTRALINE HCL 50 MG TABLET PO (12:30)
[2020-04-28] MEDS: MULTIVIT/MIN/PREN/FOL AC/IRON TABLET 1 TAB PO (12:30)
--- NOTE | 2020-04-28 15:57 | PC.NURSE ---
Nurse has worked with mother and baby today with breast feedings; baby very sleepy, and showing no interest in feeding, giving no feeding cues; several attempts this a.m, and baby would not latch; Blood sugar checked and WNL at 52, mother able to hand express 3cc colostrum; nurse syringe fed him that colostrum. Baby allowed to sleep; attempt again at 1350; no latch; nipple shield place at 1415; nurse taught mother correct way to apply the shield. baby made a little attempt with the nipple shield, but suck was disorganized and not effective. Mother agreed to bottle feed infant, and he took 17cc Enfamil easily with effective suck/swallow. Mother then set up with breast pump; reviewed set up and cleaning of equipment; 24mm flange size, appropriate, and mother reported comfortable pumping. Pump set on stimulation cycle. Now at each feeding, mother will attempt breast feeding, and if baby does not latch, she will bottle feed and pump. Mother is agreement with this plan. Mother attentive, and voiced understanding of all information shared.
[2020-04-29] MEDS: IBUPROFEN 600 MG TABLET PO ×2 (03:40→09:41)
[2020-04-29 05:56] LABS: Hematocrit 29.6 % (37.0-47.0); Hemoglobin 9.5 g/dL (12.0-15.0)
[2020-04-29 08:45] VITALS: BP 121/70; PULSE 102; RESP 18; TEMP 36.7
[2020-04-29] MEDS: MEASLES,MUMPS,RUBELLA VACCINE 0.5 ML VIAL SUB-Q (09:38)
[2020-04-29] MEDS: SERTRALINE HCL 50 MG TABLET PO (09:40)
[2020-04-29] MEDS: MULTIVIT/MIN/PREN/FOL AC/IRON TABLET 1 TAB PO (09:40)
[2020-04-29] MEDS: POLYSACCHARIDE IRON COMPLEX 150 MG CAPSULE PO (09:40)
[2020-04-29] MEDS: DOCUSATE SODIUM 100 MG CAPSULE PO (09:40)
--- NOTE | 2020-04-29 10:41 | PM.OBPNVD ---
OB - PN: Subj Subjective Date/time seen: 04/28/20 10:41 Patient comments: no complaints and pain well controlled baby status: doing well Dawson feeding status: exclusively breast feeding OB - PN: Obj Data Labs CBC & Chem 7: 04/29/20 03:38 Labs: Laboratory Results - last 24 hr 04/29/20 03:38 Hgb 9.5 L Hct 29.6 L OB - PN A/P Assessment and Plan (1) Term delivered: Code(s): O80 - Encounter for full-term uncomplicated delivery Status: Acute Assessment and Plan: pp longterm in am (2) Rubella non-immune status, antepartum: Code(s): O99.891 - Other specified diseases and conditions complicating ; Z28.3 - Underimmunization status Status: Acute Assessment and Plan: vaccine (3) Obesity: Code(s): E66.9 - Obesity, unspecified Status: Acute (4) JOSIE (generalized anxiety disorder): Code(s): F41.1 - Generalized anxiety disorder Status: Acute (5) MDD (major depressive disorder): Code(s): F32.9 - Major depressive disorder, single episode, unspecified Status: Acute (6) Homozygous MTHFR mutation [id number]: Code(s): E72.12 - Methylenetetrahydrofolate reductase deficiency Status: Acute Time Spent With Patient Time: Total time spent is greater than 50% in coordination of care (as documented) at patient's floor/unit and/or counseling patient: Review of Systems Review of Systems: All systems reviewed & are unremarkable except as noted in HPI and below Exam Const: General: cooperative, healthy appearing, comfortable, no acute distress, well developed, alert, awake and Physically active Nutritional Appearance: overweight Orientation/consciousness: patient oriented x3 Limitations: no limitations HENMT: Head: normal to inspection Eyes: General: appearance normal, both eyes and all related structures Neck: Neck: normal visual inspection and full ROM Chest: Chest palpation & inspection: abnormal inspection of the chest Breast/axilla inspection: normal inspection of the breasts Resp: Effort & Inspection: normal respiratory effort Auscultation: clear to auscultation bilaterally Cardio: Rate: regular rate Rhythm: regular rhythm GI: Inspection: normal to inspection GI Palp: Yes Soft to palpation Auscultation: normal bowel sounds : External Female Exam: normal external appearance Bimanual exam- vagina & uterus: non-tender Back/Spine/Pelvis: Back: no CVA tenderness Skin: General skin exam: normal color Neuro: General: patient oriented x3, gait normal, tone normal, moves all extremities and Normal light touch and pain sensation Extrem: General: normal to inspection, full ROM and no calf tenderness Psych: Appearance: grossly normal Mental Status: mental status grossly normal Speech and movement: Normal speech and movement present Affect: normal affect Attitude: cooperative Thought process: Normal thought process present Thought content: Yes Normal thought content present Insight: Good insight present (Psych) Judgement: Good judgement present (Psych)
--- NOTE | 2020-04-29 10:46 | PM.OBDSVD ---
DS: Admitting Diagnosis Admitting Diagnosis Admitting Diagnosis: term Elective induction of labor MTHFR JOSIE Obesity Recurrent loss Rubella nonimmune M DD DS: Discharge Diagnosis Discharge Diagnosis (1) Term delivered: Code(s): O80 - Encounter for full-term uncomplicated delivery Status: Acute (2) Elective induction of labor planned: Status: Acute (3) Rubella non-immune status, antepartum: Code(s): O99.891 - Other specified diseases and conditions complicating ; Z28.3 - Underimmunization status Status: Acute (4) Recurrent loss: Code(s): N96 - Recurrent loss Status: Acute (5) Obesity: Code(s): E66.9 - Obesity, unspecified Status: Acute (6) JOSIE (generalized anxiety disorder): Code(s): F41.1 - Generalized anxiety disorder Status: Acute (7) MDD (major depressive disorder): Code(s): F32.9 - Major depressive disorder, single episode, unspecified Status: Acute (8) 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 Status: Acute OB - DS: Summary Hospital Course Time spent discussing smoking cessation with patient: 3 to 10 minutes OB Procedures : Ultrasound OB Procedures Intrapartum: Spontaneous Vag Delivery OB Procedures: : Rubella lg Peripartum Data Delivery Method: Natural Vaginal Laceration Description: Perineal - 1st Degree Episiotomy description: None complications: none 1: Gender: Male (robert) Disposition of : home Status at Discharge Functional status at discharge: independent ambulation Overall status at discharge: patient is back to baseline Time Spent with Patient Time attestation: Total time spent providing and/or coordinating discharge services: Time spent: Less than 30 minutes Exam Const: General: cooperative, healthy appearing, comfortable, no acute distress, well developed, alert, awake and Physically active Nutritional Appearance: obese Orientation/consciousness: patient oriented x3 Limitations: no limitations HENMT: Head: normal to inspection Eyes: General: appearance normal, both eyes and all related structures Neck: Neck: normal visual inspection and full ROM Chest: Chest palpation & inspection: normal inspection of the chest Breast/axilla inspection: normal inspection of the breasts Resp: Effort & Inspection: normal respiratory effort Cardio: Rate: regular rate Rhythm: regular rhythm GI: Inspection: normal to inspection, Pannus present and obesity GI Palp: Yes Soft to palpation Auscultation: normal bowel sounds : External Female Exam: normal external appearance Bimanual exam- vagina & uterus: non-tender Back/Spine/Pelvis: Back: no CVA tenderness Skin: General skin exam: normal color Neuro: General: patient oriented x3, gait normal, tone normal, moves all extremities, Normal light touch and pain sensation, no meningeal signs, no focal motor deficits and CN's II-XI intact bilaterally Extrem: General: normal to inspection, full ROM and no calf tenderness Psych: Appearance: grossly normal Mental Status: mental status grossly normal Speech and movement: Normal speech and movement present Affect: normal affect Attitude: cooperative Thought process: Normal thought process present Thought content: Yes Normal thought content present Insight: Good insight present (Psych) Judgement: Good judgement present (Psych) DS: Data Data Completed and Pending Labs on day of discharge: Labs from last 24 hours 04/27/20 04/27/20 04/27/20 05:50 05:50 05:50 WBC 9.4 RBC 4.00 L Hgb 11.6 L Hct 35.2 L MCV 88.0 MCH 29.0 MCHC 33.0 RDW 13.8 Plt Count 304 MPV 10.4 Immature Gran % (Auto) 0.5 Neut % (Auto) 64.6 Lymph % (Auto) 25.5 Pike % (Auto) 8.7 H Eos % (Auto) 0.6 Baso % (Auto)
[2020-04-29] MEDS: ACETAMINOPHEN 325 MG TABLET 650 MG PO (11:10)
--- NOTE | 2020-04-29 15:29 | PC.NURSE ---
1220 Mother called nurse to check baby's latch; baby on in cradle position; latch appeared deep and appropriate, and baby was maintaining latch, and demonstrated rhythmic sucking; He nursed more vigorously with gentle stimulation, and mother encouraged to keep him nursing as vigorously as he will. Reviewed frequency of feedings; mother pumping this a.m. as baby was sleepy; she has 25cc pumped breast milk available as supplement, and she was instructed to feed it to him. She states she plans to keep pumping at home at least until her milk is in and baby nursing more consistently; he has been sleepy this a.m. after his circumcision. Pt has mother baby guide for home reference. Encouraged to keep f/u appointment as scheduled and one week check up with the baby's DrLamine. She agreed. Pt voiced understanding of information shared.
--- NOTE | 2020-04-29 16:33 | PC.NURSE ---
Patient viewed the discharge video [facility], The First Two Weeks . Patient was given the opportunity and encouraged to ask questions. Patient verbalized understanding of information shared and has been given the mother/baby guide for home reference.
[2020-04-30 07:50] VITALS: BP 124/78; PULSE 75; RESP 20; TEMP 36.7; O2SAT 100
== END 2020-04-29 16:45 | disposition home or self-care (01) | DRG 806 ==
LOC: ANHLDR 04-28 02:42 → ANHOB2 04-28 05:49
PROVIDERS: Admitting Provider Obstetrics & Gynecology; PCP Family Medicine; Visit Provider Obstetrics & Gynecology
DX: O99.284 Endocrine, nutritional and metabolic diseases complicating childbirth (principal); E72.12 Methylenetetrahydrofolate reductase deficiency; Z37.0 Single live birth; O70.0 First degree perineal laceration during delivery; O99.214 Obesity complicating childbirth; E66.9 Obesity, unspecified; O99.344 Other mental disorders complicating childbirth; F41.8 Other specified anxiety disorders; O76 Abnormality in fetal heart rate and rhythm complicating labor and delivery; Z3A.40 40 weeks gestation of pregnancy; O99.891 Other specified diseases and conditions complicating pregnancy; Z28.3 Underimmunization status
CPT/HCPCS: 36415; 85014; 85018; 85025; 86592; 86850; 86900; 86901; 88307; 90710; A9270; J0834; J1200; J2590; J2795; J7120